=== PATIENT | male | born 1985 | race Caucasian/White ===

== ENCOUNTER 2016-09-16 09:35 | Emergency (ER) | payer BC ==
[2016-09-16 10:19] VITALS: BP 122/80
--- NOTE | 2016-09-16 11:38 | UC ---
Complaint Male HPI - HPI Summary HPI Summary: Patient has been urinating large quantities frequently the past few days. denies any dysuria, pain in penis or scrotum, in a monogomous relationship and denies any unusal drainage from penis. does complain of dribbling after urinating and feeling of full bladder. - History of Current Complaint Chief Complaint: UCGU Stated Complaint: URINARY COMPLAINT Time Seen by Provider: 09/16/16 10:37 Hx Obtained From: Patient Onset/Duration: Sudden Onset, Lasting Days Timing: Lasting Hours Severity Initially: Mild Severity Currently: Mild Pain Intensity: 0 Pain Scale Used: 0-10 Numeric - Risk Factors Testicular Torsion: Negative - Allergies/Home Medications Allergies/Adverse Reactions: Allergies Allergy/AdvReac Type Severity Reaction Status Date / Time ? bee sting Allergy Difficulty Uncoded 09/16/16 10:19 Breathing PMH/Surg Hx/FS Hx/Imm Hx Previously Healthy: Yes - Surgical History Surgical History: Yes Surgery Procedure, Year, and Place: Ventral (?) abdominal hernia 2011 (r/t 4 [place] accident) - Family History Known Family History: Negative: Cardiac Disease, Hypertension - Social History Alcohol Use: Occasionally Alcohol Amount: 2 Substance Use Type: None Smoking Status (MU): Never Smoked Tobacco - Immunization History Most Recent Tetanus Shot: 03/02/2011 Review of Systems Constitutional: Negative Skin: Negative Eyes: Negative ENT: Negative Respiratory: Negative Cardiovascular: Negative Gastrointestinal: Negative Genitourinary: Frequency Motor: Negative Neurovascular: Negative Musculoskeletal: Negative Neurological: Negative Psychological: Negative All Other Systems Reviewed And Are Negative: Yes Physical Exam Triage Information Reviewed: Yes Appearance: Well-Appearing, Well-Nourished, Pain Distress Vital Signs: Initial Vital Signs Temp 98.5 F 09/16/16 10:11 Pulse 68 09/16/16 10:11 Resp 14 09/16/16 10:11 BP 122/80 09/16/16 10:11 Pulse Ox 98 09/16/16 10:11 Vital Signs Reviewed: Yes Eye Exam: Normal Eyes: Positive: Conjunctiva Clear ENT Exam: Normal ENT: Positive: Normal ENT inspection, Hearing grossly normal, Pharynx normal, TMs normal Dental Exam: Normal Neck exam: Normal Neck: Positive: Supple, Nontender, No Lymphadenopathy Respiratory Exam: Normal Respiratory: Positive: Chest non-tender, Lungs clear, Normal breath sounds Cardiovascular Exam: Normal Cardiovascular: Positive: RRR, No Murmur, Pulses Normal Abdominal Exam: Normal Abdomen Description: Positive: Nontender, No Organomegaly, Soft, CVA Tenderness (R) - neg, CVA Tenderness (L) - neg, Other: - no palpable masses or distension noted. Bowel Sounds: Positive: Present Musculoskeletal Exam: Normal Musculoskeletal: Positive: Strength Intact, ROM Intact, No Edema Neurological Exam: Normal Neurological: Positive: Alert, Muscle Tone Normal Psychological Exam: Normal Skin Exam: Normal Complaint Male Course/Dx - Course Course Of Treatment: hx obtained, exam performed, Ua and culture sent. GC/CL PCR , pyridium given for possible bladder spasm. referred to urology - Differential Dx/Diagnosis Differential Diagnosis/HQI/PQRI: Cancer, Prostatitis, Ureteral Calculi, Urinary Tract Infection Provider Diagnoses: urinary frequency Discharge - Discharge Plan Condition: Stable Disposition: HOME Patient Education Materials: Phenazopyridine (By mouth) Additional Instructions: I am prescribing some pyridium for possible bladder spasm. If the problem persists follow up with urology We are senting some test to rule out infection and will call with any positive results to be treated.
== END 2016-09-16 12:00 | disposition home or self-care (01) ==
LOC: UCCORT 09:35
DX: R35.0 Frequency of micturition (principal)
CPT/HCPCS: 87491; 87591; 99212; G0463

== ENCOUNTER 2019-08-11 10:47 | Emergency (ER) | payer BC ==
[2019-08-11 11:18] VITALS: BP 118/76
--- NOTE | 2019-08-11 12:31 | UC ---
Throat Pain/Nasal Cheikh HPI - HPI Summary HPI Summary: 34-year-old male comes in with a chief complaint of one week of upper respiratory tract infection symptoms. He did have right ear pain a day ago but right now he has no ear pain. Angel Luis rhinorrhea with postnasal drip. No chest congestion. - History of Current Complaint Chief Complaint: UCGeneralIllness Stated Complaint: NAUSEA CONGESTION Time Seen by Provider: 08/11/19 12:11 Pain Intensity: 0 - Allergies/Home Medications Allergies/Adverse Reactions: Allergies Allergy/AdvReac Type Severity Reaction Status Date / Time ? bee sting Allergy Difficulty Uncoded 08/11/19 11:13 Breathing PMH/Surg Hx/FS Hx/Imm Hx Previously Healthy: Yes - Surgical History Surgical History: Yes Surgery Procedure, Year, and Place: Ventral (?) abdominal hernia 2011 (r/t 4 [place] accident) - Family History Known Family History: Negative: Cardiac Disease, Hypertension - Social History Alcohol Use: Rare Alcohol Amount: 2 Substance Use Type: None Smoking Status (MU): Never Smoked Tobacco - Immunization History Most Recent Tetanus Shot: 03/02/2011 Review of Systems All Other Systems Reviewed And Are Negative: Yes Constitutional: Positive: Other - SEE HPI Skin: Positive: Negative Eyes: Positive: Negative ENT: Positive: Sore Throat, Ear Ache, Nasal Discharge, Sinus Congestion Respiratory: Positive: Negative Cardiovascular: Positive: Negative Gastrointestinal: Positive: Negative Motor: Positive: Negative Neurovascular: Positive: Negative Musculoskeletal: Positive: Negative Neurological: Positive: Negative Psychological: Positive: Negative Is Patient Immunocompromised?: No Physical Exam Triage Information Reviewed: Yes Appearance: No Pain Distress, Well-Nourished, Ill-Appearing - MILD Vital Signs: Initial Vital Signs Temp 97.7 F 08/11/19 11:14 Pulse 67 08/11/19 11:14 Resp 15 08/11/19 11:14 BP 118/76 08/11/19 11:14 Pulse Ox 98 08/11/19 11:14 Vital Signs Reviewed: Yes Eye Exam: Normal Eyes: Positive: Conjunctiva Clear ENT: Positive: Pharyngeal erythema, Nasal congestion, Nasal drainage, TMs normal Neck: Positive: Supple Respiratory: Positive: Lungs clear, Normal breath sounds, No respiratory distress Cardiovascular: Positive: RRR Musculoskeletal: Positive: Strength Intact, ROM Intact Neurological: Positive: Alert, Muscle Tone Normal Psychological: Positive: Normal Response To Family, Age Appropriate Behavior Skin Exam: Normal Throat Pain/Nasal Course/Dx - Course Course Of Treatment: DISCUSSED VIRAL VERSES BACTERIAL INFECTIONS AND THE ROLE OF ANTIBIOTICS. THE PATIENT PREFERS TO BE ON ANTIBIOTICS AT THIS TIME. - Differential Dx/Diagnosis Provider Diagnosis: Upper respiratory infection Discharge ED - Sign-Out/Discharge Documenting (check all that apply): Patient Departure All imaging exams completed and their final reports reviewed: No Studies - Discharge Plan Condition: Stable Disposition: HOME Prescriptions: Amoxicillin PO (*) [Amoxicillin 875 MG (*)] 875 mg PO BID #20 tab Patient Education Materials: Upper Respiratory Infection (ED) Referrals: [facility] [Outside] Additional Instructions: FOLLOW UP WITH YOUR DOCTOR IF NOT COMPLETELY IMPROVED. GET REEVALUATED SOONER IF NOT IMPROVING OR WORSE OR ANY QUESTIONS OR CONCERNS. - Billing Disposition and Condition Condition: STABLE Disposition: Home
== END 2019-08-11 12:38 | disposition home or self-care (01) ==
LOC: UCCORT 10:47
DX: J06.9 Acute upper respiratory infection, unspecified (principal)
CPT/HCPCS: 99212; G0463